=== PATIENT | female | born 2000 | race Caucasian/White ===

== ENCOUNTER 2021-12-06 14:12 | Emergency (ER) | payer OTHER ==
[~2021-12-06] VITALS: Ht 162.6 cm; Wt 92.0 kg
[2021-12-06 14:17] VITALS: BP 119/82
== END 2021-12-06 17:08 | disposition home or self-care (01) ==
LOC: M ED 14:12
DX: S80.812A Abrasion, left lower leg, initial encounter (principal); S70.00XA Contusion of unspecified hip, initial encounter; V03.131A Pedestrian on standing electric scooter injured in collision with car, pick-up or van in traffic accident, initial encounter; F17.200 Nicotine dependence, unspecified, uncomplicated

== ENCOUNTER → 2023-10-27 | Outpatient (REF) | payer OTHER, MEDICAID | LOC: M LAB REF 21:03 | PROVIDERS: ATTEND Physician Assistant Medical | DX: R50.9 Fever, unspecified (principal) ==